=== PATIENT | male | born 1960 | race Caucasian/White ===

== ENCOUNTER → 2016-11-18 | Outpatient (CLI) | payer BC ==
[~2016-11-18] MED LIST: ASPI1CHW12 PO; ASPI325T39 PO; ATOR-26 PO; BRL90 PO; LISI-461 PO; LSN20 PO; METO25TA3 PO; MULT-506 PO; NTRGSL4 SL; OMEP20TA PO; VARE1PAK15 PO
[2016-11-18 10:42] LABS: ALT/SGPT 44 U/L (12-78); BLOOD UREA NITROGEN 20 mg/dl (7-18); BUN/CREATININE RATIO 20.9 (10-20); CALCIUM 9.2 mg/dl (8.5-10.1); CARBON DIOXIDE 23 mmol/L (21-32); CHLORIDE 105 mmol/L (98-107); CREATININE 0.95 mg/dl (0.60-1.40); GLUCOSE 106 mg/dl (70-99); POTASSIUM 4.1 mmol/L (3.5-5.1); SODIUM 139 mmol/L (136-145)
[2016-11-18 10:53] LABS: ALB/GLOB RATIO 1.1 (0.9-2); ALKALINE PHOSPHATASE 69 U/L (45-117); AST/SGOT 24 U/L (15-37)
== END | disposition home or self-care (01) ==
LOC: C.LAB1850 06:59
PROVIDERS: ATTEND Internal Medicine
DX: R73.01 Impaired fasting glucose (principal); E78.5 Hyperlipidemia, unspecified

== ENCOUNTER 2017-02-07 05:44 | Inpatient (IN) | payer BC, OTHER ==
[~2017-02-07] VITALS: Ht 170.2 cm; Wt 93.5 kg
[2017-02-07] VITALS (9 sets, daily range): BP systolic 89–151; BP diastolic 46–97; PULSE 57–82; TEMP 36.9–37.1; O2SAT 94–100; Ht 170.2 cm; Wt 93.5 kg
[~2017-02-07 05:44] MED LIST changes: -ASPI1CHW12 PO; -BRL90 PO; -LSN20 PO; -NTRGSL4 SL; -OMEP20TA PO; -VARE1PAK15 PO
[2017-02-07 06:04] LABS: HEMATOCRIT 43.2 % (42-52); MEAN CELL VOLUME 89.6 fL (80-100); MEAN CORPUSCULAR HEMOGLOBIN 31.3 pg (25-34); MEAN PLATELET VOLUME 9.5 fL (7.4-10.4); PLATELET COUNT 209 K/uL (130-400); RED BLOOD COUNT 4.82 M/uL (4.7-6.1); WHITE BLOOD COUNT 7.05 K/uL (4.8-10.8)
[2017-02-07] MEDS ORDERED: NITROGLYCERIN 0.4 MG SL PER TAB CHARGE SL STA (06:05)
[2017-02-07 06:21] LABS: BLOOD UREA NITROGEN 16 mg/dl (7-18); BUN/CREATININE RATIO 13.4 (10-20); CALCIUM 9.2 mg/dl (8.5-10.1); CARBON DIOXIDE 28 mmol/L (21-32); CHLORIDE 105 mmol/L (98-107); GLUCOSE 125 mg/dl (70-99); POTASSIUM 3.9 mmol/L (3.5-5.1); SODIUM 140 mmol/L (136-145)
[2017-02-07 06:26] LABS: CKMB/CK RATIO 0.9 (0-3.0)
[2017-02-07] MEDS ORDERED: NITROGLYCERIN OINT 2% 1GM PACKET EXT ONE (06:30)
--- NOTE | 2017-02-07 06:41 | EMERGENCY ROOM VISIT NOTE ---
History First contact with patient: 05:51 Chief Complaint: CARDIAC ASSESSMENT Stated Complaint: HEART PAIN Nursing Triage Summary: patient c/o right sided chest discomfort radiating down right arm and jaw since 041 when he woke up. states he has a hx of [place] and bypass. patient states he took aspirin prior to arrival . also states pain has improved since initial episode . History of Present Illness The patient is a 56 year old male who presents to the Emergency Room with complaints of substernal chest pain that radiates down his right arm and up to his jaw since 4:15 this point prescription as pressure, 4 out of 10. Nothing makes it better or worse. Patient woke up this morning and then shortly after that developed symptoms. He follows with Dr. Davies from cardiology. He's had a CABG in the past. He also has high blood pressure, cholesterol and smokes. Patient denies dyspnea, fever, chills, numbness, tingling, nausea, vomiting, diarrhea, diaphoresis, back pain, abdominal pain, leg pain or swelling. Patient saw his fur cleaner last month. No recent stress test or echo. Patient did do some cardiovascular activity yesterday and some light weightlifting. Review of Systems See HPI for pertinent positives & negatives. A total of 10 systems reviewed and were otherwise negative. Past Medical/Surgical History Medical Problems: (1) Hypertension Hyperlipidemia, cholecystectomy, CABG Family History No pertinent family history Social History Smoking Status: Current Every Day Smoker Alcohol Use: none Drug Use: none Housing Status: lives with family Occupation Status: employed Current/Historical Medications Scheduled Aspirin (Aspirin Ec), 325 MG PO DAILY Atorvastatin (Lipitor), 80 MG PO HS Lisinopril (Zestril), 10 MG PO QAM Metoprolol Succ (Toprol Xl) (Toprol-Xl), 25 MG PO BID Multivitamin (Multivitamin), 1 TAB PO QAM Allergies Coded Allergies: No Known Allergies (Verified , 02/07/17) Physical Exam Vital Signs Date Time Temp Pulse Resp B/P Pulse Ox O2 Delivery O2 Flow Rate FiO2 02/07/17 06:17 59 20 130/65 96 Room Air 02/07/17 05:58 97 Room Air 02/07/17 05:53 57 02/07/17 05:50 36.5 56 20 176/103 100 Room Air Physical Exam VITALS: Vitals are noted on the nurse's note and reviewed by myself. Vital signs hypertensive. GENERAL: Pleasant male, in no acute distress, nondiaphoretic, well-developed well-nourished. SKIN: The skin was without rashes, erythema, edema, or bruising. There is no tenting of the skin. Capillary reflex less than 2 seconds. HEAD: Normocephalic atraumatic. EARS: External auditory canals clear, tympanic membranes pearly roy without erythema or effusion bilaterally. EYES: Pupils equal round and reactive to light and accommodation. Conjunctivae without injection, sclerae without icterus. Extraocular movements intact. NOSE: Patent, turbinates without inflammation or discharge. MOUTH: Mucous membranes moist. Pharynx without erythema or exudate. Uvula midline. Airway patent. Tongue does not deviate. NECK: Supple without nuchal rigidity. No lymphadenopathy. No thyromegaly. Cervical spine is nontender. No JVD. HEART: Regular rate and rhythm chest nontender to palpation LUNGS: Clear to auscultation bilaterally without wheezes, rales or rhonchi. No dullness to percussion. No retractions or accessory muscle use. ABDOMEN: Positive bowel sounds x 4. Normal tympanic percussion. Soft, nontender, without masses or organomegaly. Castillo sign negative. No guarding or rebound tenderness. MUSCULOSKELETAL: No muscle atrophy, erythema, or edema noted. NEURO: Patient was alert and oriented to person place and time. Normal sensation to light and sharp touch. No focal neurological deficits. Medical Decision & Procedures Laboratory Results 02/07/17 05:52 Red Blood Count 4.82, Mean Corpuscular Volume 89.6, Mean Corpuscular Hemoglobin 31.3, Mean Corpuscular Hemoglobin Concent 35.0, Mean Platelet Volume 9.5 02/07/17 05:52 Test 02/07/17 05:52 02/07/17 05:57 White Blood Count 7.05 K/uL (4.8-10.8) Red Blood Count 4.82 M/uL (4.7-6.1) Hemoglobin 15.1 g/dL (14.0-18.0) Hematocrit 43.2 % (42-52) Mean Corpuscular Volume 89.6 fL (80-100) Mean Corpuscular Hemoglobin 31.3 pg (25-34) Mean Corpuscular Hemoglobin Concent 35.0 g/dl (32-36) Platelet Count 209 K/uL (130-400) Mean Platelet Volume 9.5 fL (7.4-10.4) RDW Standard Deviation 44.4 fL (36.4-46.3) RDW Coefficient of Variation 13.6 % (11.5-14.5) Anion Gap 7.0 mmol/L (3-11) Est Creatinine Clear Calc Drug Dose 77.4 ml/min Estimated GFR () 79.0 Estimated GFR (Non- 68.1 BUN/Creatinine Ratio 13.4 (10-20) Calcium Level 9.2 mg/dl (8.5-10.1) Total Creatine Kinase 490 U/L (39-308) Creatine Kinase MB 4.3 ng/ml (0.5-3.6) Creatine Kinase MB Ratio 0.9 (0-3.0) Troponin I < 0.015 ng/ml (0-0.045) Bedside Troponin I 0.000 ng/ml (0-0.045) Medications Administered Medications (Trade) Dose Ordered Sig/Dinesh Route Start Time Stop Time Status Last Admin Dose Admin Nitroglycerin (Nitrostat Tab) 0.4 mg NOW STAT SL 02/07/17 06:05 02/07/17 06:06 DC 02/07/17 06:14 0.4 MG Nitroglycerin (Nitroglycerin 2% Oint) 0.5 inch NOW ONCE EXT 02/07/17 06:30 02/07/17 06:31 DC 02/07/17 06:32 0.5 INCH ED Course Prior records/ancillary studies reviewed. Triage Nursing notes reviewed. Additional history obtained from family. The patient's history was concerning for chest pain. Differential diagnosis: Etiologies such as cardiac ischemia, aortic dissection, pulmonary embolism, pneumonia, pneumothorax, musculoskeletal, infections, pericarditis, myocarditis , esophageal rupture, gastrointestinal, as well as others were entertained. Physical examination: As above. ER treatment provided: Nitroglycerin. Patient already took aspirin at home On reassessment the patient felt better. Diagnostic interpretation by me: The electrocardiogram was negative for pathologic change. Normal sinus, normal intervals, no acute ST-T wave changes, rate of 61. Impression normal sinus rhythm interpreted by myself. Repeat EKG was unchanged. The labs revealed negative troponin Stable H&H Imaging studies: Chest x-ray with no acute consolidation, pneumothorax or free air per my interpretation Consultation: A consultation was placed with the hospitalist, Dr. Talley. The case was discussed and diagnostics were reviewed. The patient was evaluated in the ER for further treatment. Exam and history seem consistent with chest pain with concerns for ACS. Patient felt better after the nitroglycerin and paste was applied. Patient will be evaluated by medicine for further evaluation and workup. He has multiple risk factors for heart disease such as high blood pressure, cholesterol , prior heart disease and he continues to smoke. By the evaluation outlined above emergent etiologies such as aortic dissection, pulmonary embolism, pneumonia, pneumothorax, infections, pericarditis, myocarditis, gastrointestinal , as well as others were deemed relatively unlikely. The pt informed about the findings as listed above. All questions were answered and pleased with the treatment. Case reviewed with my attending Medical Decision As above Impression Primary Impression: Precordial chest pain Departure Information Dispostion Being Evaluated By Hospitalist Condition FAIR Referrals No Doctor, Assigned (PCP) Patient Instructions My [facility]
[2017-02-07 06:53] LABS: BASO % 0.3 %; BASO ABS # 0.02 K/uL (0-0.2); COMPLETE YES; IG% 0.1 %; LYMPH % 27.4 %; LYMPH ABS # 1.93 K/uL (1.2-3.4); MONO % 8.1 %; NEUT % 62.1 %
[2017-02-07] MEDS ORDERED: NITROGLYCERIN 0.4 MG SL PER TAB CHARGE SL PRN (07:00)
[2017-02-07] MEDS ORDERED: ZOLPIDEM TARTRATE 5 MG TAB PO PRN (07:00)
[2017-02-07] MEDS ORDERED: ACETAMINOPHEN 325 MG TAB PO PRN (07:00)
[2017-02-07] MEDS ORDERED: ONDANSETRON INJ 2 MG/ML 2 ML VIAL IV PRN (07:00)
--- NOTE | 2017-02-07 07:08 | History and Physical ---
History & Physical Date & Time of Service: Feb 07, 2017 at 07:01 Chief Complaint: Heart Pain Primary Care Physician: No Doctor, Assigned History of Present Illness Source: patient, spouse The patient is a 56-year-old male with past history of CABG in 2010 at [facility], who woke up this morning as usual, began to drink his coffee, and since then has had intermittent episodes of chest pressure and pain across his precordial area and over into his right arm. He reports the discomfort similar to what happened to him in 2011 was let us CABG. He has been more physically active over the past few day, but nothing that he thinks is excessive. Past Medical/Surgical History Medical Problems: (1) Hypertension Status: Chronic Family History No pertinent family history Social History Smoking Status: Current Every Day Smoker Smokeless Tobacco Use: No Alcohol Use: none Drug Use: none Marital Status: Housing status: lives with family Occupational Status: employed Immunizations History of Influenza Vaccine: Unknown History of Tetanus Vaccine?: Unknown History of Pneumococcal: Unknown History of Hepatitis B Vaccine: Unknown Multi-Drug Resistant Organisms History of MDRO: No Allergies Coded Allergies: No Known Allergies (Verified , 02/07/17) Home Medications Scheduled Aspirin (Aspirin Ec), 325 MG PO DAILY Atorvastatin (Lipitor), 80 MG PO HS Lisinopril (Zestril), 10 MG PO QAM Metoprolol Succ (Toprol Xl) (Toprol-Xl), 25 MG PO BID Multivitamin (Multivitamin), 1 TAB PO QAM Review of Systems The patient denies chest palpitations, shortness of breath, cough, lower extremity swelling, vision change, hearing change, sore throat, fevers, chills, sweats, weight change, fatigue, nausea, vomiting, abdominal pain, pelvic pain, blood in urine or stool, dysuria, urinary frequency or urgency, lightheadedness , dizziness, headache, memory loss, rash, abnormal bruising or bleeding, imbalance, focal or generalized weakness, numbness or tingling in legs, arthralgias or myalgias, back or neck pain, night sweats, or allergy symptoms. The review of systems is otherwise negative other than for that already noted above, and at least 10 systems have been reviewed. Physical Exam Vital Signs Date Time Temp Pulse Resp B/P Pulse Ox O2 Delivery O2 Flow Rate FiO2 02/07/17 06:57 50 16 145/84 98 Room Air 02/07/17 06:17 59 20 130/65 96 Room Air 02/07/17 05:58 97 Room Air 02/07/17 05:53 57 02/07/17 05:50 36.5 56 20 176/103 100 Room Air The patient is awake, well-developed and adequately nourished, alert and oriented 3, normocephalic and atraumatic, lying in bed and in no acute distress. HEENT--PERRL, EOMI, mucous membranes and oropharynx normal. Neck--supple, no JVD or bruits, thyroid normal, trachea midline, no adenopathy. Heart--normal S1 and S2, no extra beats, no murmurs, rubs or gallops. Lungs--clear bilaterally with good air movement, no respiratory distress, no accessory muscle use. Abdomen--normal bowel sounds and soft, nontender and nondistended, no hernias or masses, no organomegaly. Extremities--no cyanosis, clubbing or edema. There are good distal pulses b/l. Dermatologic--normal skin turgor, normal color, warm and dry, no abnormal lymph nodes, no rash. Neurologic--cranial nerves II through XII grossly intact, motor and sensory examination normal. Rheumatologic--normal range of motion, nontender, muscles and joints. Psychiatric--normal affect. Diagnostics Laboratory Results Results Past 24 Hours Test 02/07/17 05:52 02/07/17 05:57 02/07/17 06:55 02/07/17 06:59 Range/Units White Blood Count 7.05 4.8-10.8 K/uL Red Blood Count 4.82 4.7-6.1 M/uL Hemoglobin 15.1 14.0-18.0 g/dL Hematocrit 43.2 42-52 % Mean Corpuscular Volume 89.6 80-100 fL Mean Corpuscular Hemoglobin 31.3 25-34 pg Mean Corpuscular Hemoglobin Concent 35.0 32-36 g/dl Platelet Count 209 130-400 K/uL Mean Platelet Volume 9.5 7.4-10.4 fL Neutrophils (%) (Auto) 62.1 % Lymphocytes (%) (Auto) 27.4 % Monocytes (%) (Auto) 8.1 % Eosinophils (%) (Auto) 2.0 % Basophils (%) (Auto) 0.3 % Neutrophils # (Auto) 4.38 1.4-6.5 K/uL Lymphocytes # (Auto) 1.93 1.2-3.4 K/uL Monocytes # (Auto) 0.57 0.11-0.59 K/uL Eosinophils # (Auto) 0.14 0-0.5 K/uL Basophils # (Auto) 0.02 0-0.2 K/uL RDW Standard Deviation 44.4 36.4-46.3 fL RDW Coefficient of Variation 13.6 11.5-14.5 % Immature Granulocyte % (Auto) 0.1 % Immature Granulocyte # (Auto) 0.01 0.00-0.02 K/uL Sodium Level 140 136-145 mmol/L Potassium Level 3.9 3.5-5.1 mmol/L Chloride Level 105 98-107 mmol/L Carbon Dioxide Level 28 21-32 mmol/L Anion Gap 7.0 3-11 mmol/L Blood Urea Nitrogen 16 7-18 mg/dl Creatinine 1.20 0.60-1.40 mg/dl Est Creatinine Clear Calc Drug Dose 77.4 ml/min Estimated GFR () 79.0 Estimated GFR (Non- 68.1 BUN/Creatinine Ratio 13.4 10-20 Random Glucose 125 70-99 mg/dl Calcium Level 9.2 8.5-10.1 mg/dl Total Creatine Kinase 490 39-308 U/L Creatine Kinase MB 4.3 0.5-3.6 ng/ml Creatine Kinase MB Ratio 0.9 0-3.0 Troponin I < 0.015 0-0.045 ng/ml Bedside Troponin I 0.000 0-0.045 ng/ml EKG EKG shows sinus bradycardia at 57 bpm, there are no acute ST-T changes. Impression Assessment and Plan CAD/status post CABG/hypertension--the patient will be admitted to the telemetry unit for serial cardiac enzymes, cardiac rhythm monitoring and a 2-D echocardiogram with Dopplers. We'll consult his chief technical officer Dr. Holguin. Continue his metoprolol tartrate 25 mg by mouth twice a day, aspirin 325 mg by mouth daily, and increase his lisinopril from 10 to 20 mg by mouth every morning. Hypercholesterolemia--continue Lipitor 80 mg by mouth daily.. Hyperglycemia--blood sugar this morning is 125. We'll check a hemoglobin A1c. Level of Care Telemetry Advanced Directives Existing Advance Directive: No Existing Living Will: No Existing Power of Underground Bolting Machine Operator: No Resuscitation Status FULL RESUSCITATION VTE Prophylaxis VTE Risk Assessment Done? Y/N: Yes Risk Level: Moderate Given or contraindicated: SCD's Social Service Consult None Apply
[2017-02-07] MEDS ORDERED: IV FLUIDS COMPLETED PRN (07:30)
[2017-02-07 07:41] LABS: CKMB/CK RATIO 0.9 (0-3.0)
--- NOTE | 2017-02-07 07:58 | DIAGNOSTIC IMAGING REPORT ---
SINGLE VIEW CHEST CLINICAL HISTORY: Atypical chest pain. FINDINGS: An AP, portable, upright chest radiograph is compared to study dated 03/02/2012. The examination is degraded by portable technique and patient rotation. The patient is status post midline sternotomy. The heart is enlarged and there is mild atherosclerotic calcification of the thoracic aorta. The pulmonary vasculature is noncongested. The lungs and pleural spaces are clear. No pneumothorax is seen. The bony thorax is grossly intact. IMPRESSION: Cardiomegaly with no acute cardiopulmonary abnormality. Electronically signed by: Mike Borden M.D. 02/07/2017 7:55 AM Dictated Date/Time: 02/07/2017 7:55 AM
[2017-02-07 07:59] LABS: ESTIMATED AVERAGE GLUCOSE 126 mg/dl; HA1C FLAG Normal (Normal)
[2017-02-07] MEDS: LISINOPRIL 20 MG TAB PO SCH (12:00)
[2017-02-07] MEDS: MULTIVITAMIN TAB PO SCH (12:00)
[2017-02-07] MEDS: METOPROLOL SUCC 25MG EXT REL TAB PO SCH ×2 (12:00→20:36)
[2017-02-07] MEDS: ASPIRIN 325 MG ECTAB PO SCH (12:00)
--- NOTE | 2017-02-07 14:32 | Hospitalist Progress Note ---
Hospitalist Progress Note Date of Service Feb 07, 2017. (Jeri Morales PA-C) Subjective Pt evaluation today including: conversation w/ patient, conversation w/ family , physical exam, chart review, lab review, review of studies, conversation w/ data virtualization consultant, review of inpatient medication list no further CP (Jeri Morales PA-C) Objective Vital Signs Date Time Temp Pulse Resp B/P Pulse Ox O2 Delivery O2 Flow Rate FiO2 02/07/17 12:43 138/83 02/07/17 12:00 100 Room Air 02/07/17 10:52 37.0 60 18 148/97 100 Room Air 02/07/17 10:40 52 16 149/89 97 02/07/17 09:09 56 20 133/74 98 Room Air 02/07/17 07:25 98 Room Air 02/07/17 06:57 50 16 145/84 98 Room Air 02/07/17 06:17 59 20 130/65 96 Room Air 02/07/17 05:58 97 Room Air 02/07/17 05:53 57 02/07/17 05:50 36.5 56 20 176/103 100 Room Air (Jeri Morales PA-C) Laboratory Results Last 24 Hours Test 02/07/17 05:52 02/07/17 05:57 02/07/17 07:06 02/07/17 14:19 White Blood Count 7.05 K/uL Red Blood Count 4.82 M/uL Hemoglobin 15.1 g/dL Hematocrit 43.2 % Mean Corpuscular Volume 89.6 fL Mean Corpuscular Hemoglobin 31.3 pg Mean Corpuscular Hemoglobin Concent 35.0 g/dl Platelet Count 209 K/uL Mean Platelet Volume 9.5 fL Neutrophils (%) (Auto) 62.1 % Lymphocytes (%) (Auto) 27.4 % Monocytes (%) (Auto) 8.1 % Eosinophils (%) (Auto) 2.0 % Basophils (%) (Auto) 0.3 % Neutrophils # (Auto) 4.38 K/uL Lymphocytes # (Auto) 1.93 K/uL Monocytes # (Auto) 0.57 K/uL Eosinophils # (Auto) 0.14 K/uL Basophils # (Auto) 0.02 K/uL RDW Standard Deviation 44.4 fL RDW Coefficient of Variation 13.6 % Immature Granulocyte % (Auto) 0.1 % Immature Granulocyte # (Auto) 0.01 K/uL Sodium Level 140 mmol/L Potassium Level 3.9 mmol/L Chloride Level 105 mmol/L Carbon Dioxide Level 28 mmol/L Anion Gap 7.0 mmol/L Blood Urea Nitrogen 16 mg/dl Creatinine 1.20 mg/dl Est Creatinine Clear Calc Drug Dose 77.4 ml/min Estimated GFR () 79.0 Estimated GFR (Non- 68.1 BUN/Creatinine Ratio 13.4 Random Glucose 125 mg/dl Estimated Average Glucose 126 mg/dl Hemoglobin A1c 6.0 % Calcium Level 9.2 mg/dl Total Creatine Kinase 490 U/L 427 U/L Creatine Kinase MB 4.3 ng/ml 4.0 ng/ml Creatine Kinase MB Ratio 0.9 0.9 Troponin I < 0.015 ng/ml < 0.015 ng/ml Bedside Troponin I 0.000 ng/ml (Jeri Morales PA-C) Assessment and Plan 56 y/o hx CAD s/p CABG presents with CP -f/u echo, enzymes, cardiology consult -continue current meds (Jeri Morales PA-C) Attending Attestation: Pt seen/examined, chart reviewed, care plan d/w LATOYA Fierro. I agree w/ the kaufman components of her documentation. At the time of my visit this afternoon the patient's troponin returned at 2.8. He was c/o 2-3/10 chest discomfort with radiation to his arms/shoulders and also the mid thoracic region of his back. No nausea/emesis/diaphoresis. The pain would get better with morphine, then return a little while later. Seen by Dr. Peacock - started on heparin drip, nitro drip, etc. Plan for heart cath in am. VSS, afebrile gen - NAD neck - no JVD heart - RRR, s1, s2, no murmur chest - no reproducible chest wall pain lungs - CTA b/l, scant end-exp wheeze upper lung segments abd - soft, NT, ND, no HSM ext - no edema, pulses 2+ b/l Labs - latest CPK, CK-MB, trop all + EKG - sinus anthony, no ST changes A/P: Known CAD s/p CABG in the past - now with NSTEMI and ongoing, mild chest pain. Agree w/ nitro and heparin drips. Cont BB, asa, statin. Brilenta per cardiology. Morphine prn pain. If pain persists, worsens, or there is a marked rise in troponin tonight he may need early catheterization and/or transfer to ICU for titration of nitroglycerin drip. plan of care d/w Jovanny Oliveros, and night resident (Dr. Pinedo). Due to NSTEMI change to full admission status. Drew Carver MD (Drew Carver MD)
[2017-02-07] MEDS ORDERED: LSN20 PO (14:34)
--- NOTE | 2017-02-07 14:37 | Discharge Instructions ---
Discharge Instructions Date of Service Feb 07, 2017. Admission Reason for Admission: Chest Pain Radiating To Arm, Precordial Chest Pain Discharge Discharge Diagnosis / Problem: chest pain Discharge Goals Goal(s): Diagnostic testing Activity Recommendations Activity Limitations: resume your previous activity . Instructions / Follow-Up Instructions / Follow-Up You had been treated in the hospital for chest pain. The following changes/additions have been made to your medication list: -Lisinopril has been increased to 20 mg daily. This prescription was sent to your pharmacy. Please follow up with your dinkey engine mechanic in 2 weeks Please follow up with your primary care physician within one week for a blood pressure recheck It is advised that you stop smoking Call your doctor or return to the emergency department if you have any of the following symptoms: -Fever of 101F or greater -Persistent vomiting - Persistent diarrhea -Lethargy -Returning Chest pain -Shortness of breath -severe dizziness -weakness on one side of your body Current Hospital Diet Patient's current hospital diet: AHA Diet (Heart Healthy) Discharge Diet Recommended Diet: AHA Diet (Heart Healthy) Procedures Procedures Performed: echo Pending Studies Studies pending at discharge: no Laboratory Results Hemoglobin A1c Test 02/07/17 05:52 Range/Units Estimated Average Glucose 126 mg/dl Hemoglobin A1c 6.0 H 4.5-5.6 % Medical Emergencies . Who to Call and When: Medical Emergencies: If at any time you feel your situation is an emergency, please call 911 immediately. . Non-Emergent Contact Non-Emergency issues call your: Primary Care Provider . . "Provider Documentation" section prepared by Jeri Morales. VTE Core Measure Inpt VTE Proph given/why not?: SCD's
[2017-02-07 15:11] LABS: CKMB/CK RATIO 7.2 (0-3.0)
[2017-02-07] MEDS ORDERED: NITROGLYCERIN/D5W 100 MCG/ML 250 ML IV SCH (15:21)
[2017-02-07] MEDS ORDERED: MoRPHine SULFATE 2 MG/ML CARP IV STA (15:21)
[2017-02-07] MEDS ORDERED: NURSING VERBAL MED ORDER ONE (15:30)
[2017-02-07] MEDS ORDERED: TICAGRELOR 90 MG TAB PO STA (15:55)
[2017-02-07] MEDS ORDERED: HEPARIN 25,000 UNIT/500ML D5W 500 ML IV PRN (16:00)
[2017-02-07] MEDS ORDERED: HEPARIN IV BOLUS 6,000 UNIT in SYRINGE 0 ML IV ONE (16:00)
[2017-02-07 16:52] LABS: PARTIAL THROMBOPLASTIN RATIO 1.1; PROTHROMBIN TIME (PATIENT) 10.7 SECONDS (9.0-12.0)
[2017-02-07 16:53] LABS: BASO % 0.2 %; BASO ABS # 0.02 K/uL (0-0.2); COMPLETE YES; EOS % 0.9 %; HEMATOCRIT 42.7 % (42-52); IG% 0.4 %; LYMPH % 21.6 %; LYMPH ABS # 2.31 K/uL (1.2-3.4); MEAN CELL VOLUME 89.7 fL (80-100); MEAN CORPUSCULAR HEMOGLOBIN 31.3 pg (25-34); MEAN CORPUSCULAR HGB CONC 34.9 g/dl (32-36); MEAN PLATELET VOLUME 9.7 fL (7.4-10.4); NEUT % 70.9 %; PLATELET COUNT 211 K/uL (130-400); RED BLOOD COUNT 4.76 M/uL (4.7-6.1); WHITE BLOOD COUNT 10.67 K/uL (4.8-10.8)
[2017-02-07] MEDS: NICOTINE 14 MG/24 HR TDSY TD SCH (16:59)
[2017-02-07] MEDS: MoRPHine SULFATE 2 MG/ML CARP IV PRN ×2 (18:20→19:33)
[2017-02-07] MEDS: ATORVASTATIN 40 MG TAB PO SCH (20:37)
[2017-02-07] MEDS: TICAGRELOR 90 MG TAB PO SCH (20:37)
--- NOTE | 2017-02-07 22:08 | CARDIOLOGY CONSULTATION ---
DATE OF CONSULTATION: 02/07/2017 REFERRING PHYSICIAN: Stevan Napier MD PRIMARY CARE PHYSICIAN: MD Jesus CHIEF COMPLAINT: Chest pain. HISTORY OF PRESENT ILLNESS: Mr. Warren Montgomery is a 56-year-old gentleman, with a known history of coronary artery disease having previously undergone coronary artery bypass grafting in 2010. The patient was in his usual state of health this morning when at breakfast, he began to experience symptoms of substernal chest discomfort, back discomfort, jaw pain and right arm discomfort. These symptoms were reminiscent of anginal pain he had prior to his bypass surgery. The patient's symptoms did not resolve at home and he presented to the [facility] where he received some sublingual nitroglycerin. This apparently did not relieve his symptoms entirely. Based on his symptoms and history, he was admitted for hospitalization. He states that throughout the course of the day, he has had persistent discomfort in the precordium and back. The arm symptoms appear to have resolved. Yesterday, he was performing strenuous activity including weight lifting and feels that his symptoms may be musculoskeletal in nature. He denies associated dyspnea or diaphoresis. He has not had any associated nausea. Generally speaking, he is a very active individual who engages in routine physical activity both at work and at leisure; this includes strenuous activity such as weight lifting. He has not had any symptoms of chest pain or angina associated with these activities recently. PAST MEDICAL HISTORY: Significant for coronary artery disease having undergone bypass grafting in 2010. There was a SHETH to the LAD, a saphenous vein graft to OM1 and OM2 and a saphenous vein graft to the PDA. He was known to have; 1. Preserved left ventricular systolic function. 2. Hypertension. 3. Hyperlipidemia. 4. Obstructive sleep apnea. 5. Erectile dysfunction. 6. Diverticulosis. 7. Impaired fasting glucose. 8. History of colon polyps. PAST SURGICAL HISTORY: Significant for the aforementioned coronary artery bypass grafting. 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 He has a history of tobacco abuse and claims to drink socially. FAMILY HISTORY: No history of premature coronary disease. OUTPATIENT MEDICATIONS: Include; aspirin, atorvastatin, lisinopril, metoprolol and multivitamin. MEDICAL ALLERGIES: No known medical allergies. REVIEW OF SYSTEMS: A complete 10-system review of systems was performed and the pertinent positives are as noted in the history of present illness. The remainder of the review of systems was negative. PHYSICAL EXAMINATION: GENERAL: The patient does not appear to be in acute distress. He was somewhat anxious however. He was alert, oriented and answered all questions appropriately. VITAL SIGNS: Include blood pressure of 145/83 with a pulse of 57. HEENT: His sclerae are anicteric. Pupils are equal and reactive to light and accommodation. Extraocular movements were intact. NECK: Palpation of submandibular region did not reveal any significant lymphadenopathy. The carotids are palpable bilaterally. I do not appreciate any bruits on auscultation. There is no evidence of jugular venous distention. The thyroid is not enlarged. LUNGS: Auscultation of both lung hercules reveal them to be clear. There were no rales, wheezes or rhonchi. He had good respiratory effort without use of accessory muscles. HEART: Evaluation revealed him to be in a regular rhythm. I did not appreciate any murmurs. S1, S2 appear to be normal. The PMI was not markedly displaced. CHEST: He had a well-healed sternotomy scar. Palpation of the chest area did not reproduce his symptoms. EXTREMITIES: Palpation of both wrists revealed radial pulses that were equal in intensity. There was no evidence of cyanosis or clubbing. Evaluation of lower extremities did not reveal any significant peripheral edema. I do not appreciate any rashes on exam today. LABORATORY STUDIES: Obtained since admission include; a white cell count of 10.6, hemoglobin of 14 and platelet count of 211. Sodium was 140, potassium was 3.9, BUN was 16 and creatinine was 1.2. Serial cardiac biomarkers include two initial troponins which were normal and most recent was 2.8; this was in the setting of an elevated total creatinine kinase at 709. A 12-lead EKG was obtained at admission and recently; both of which demonstrated normal sinus rhythm without evidence of ST segment changes. A single view chest x-ray was also obtained at the time of admission which was read as cardiomegaly with no acute cardiopulmonary abnormality. ASSESSMENT AND PLAN: Non-ST elevation myocardial infarction. The patient's symptoms began at rest and it likely represents an unstable coronary syndrome. He had similar index symptoms associated with his angina prior to his bypass surgery. The patient is somewhat frustrated by the recurrence of these symptoms. At several points during the interview he wanted to go home and he was counseled against that. At this point, we will intensify therapy in an attempt to make him pain-free and mitigate any additional ischemia with plans on a repeat angiography tomorrow. FINAL RECOMMENDATIONS: 1. Systemic heparinization. 2. Continue aspirin. 3. Load with brilinta and schedule b.i.d. 4. Nitroglycerin infusion for symptoms as well as blood pressure control. 5. Morphine on an as needed basis. 6. Continue serial enzyme monitoring and periodic EKGs.
[2017-02-07 23:34] LABS: PARTIAL THROMBOPLASTIN RATIO 2.8
[2017-02-07 23:50] LABS: CKMB/CK RATIO 9.4 (0-3.0)
[2017-02-08] VITALS (12 sets, daily range): BP systolic 90–126; BP diastolic 44–74; PULSE 54–80; TEMP 36.6–37.2; O2SAT 95–97
[2017-02-08] MEDS: SODIUM CHLORIDE 0.9% 500ML 500 ML IV SCH ×2 (00:31→06:00)
[2017-02-08] MEDS ORDERED: NSS + 20MEQ KCL 1000ML 1,000 ML IV SCH (00:45)
--- NOTE | 2017-02-08 01:46 | Progress Note ---
Progress Note Date of Service Feb 08, 2017. Progress Note 56-year-old male with past medical history of CABG presented with chest pressure this morning. He was admitted in telemetry essentially for a chest pain rule out. Cardiology was consulted and he was started on heparin and nitroglycerin drip with aspirin, Lipitor, lisinopril, Brilinta. Last set of troponins came back at 54.8, went up to see the patient. Subjective: He was resting and was totally asymptomatic. Denied any chest pain, shortness of breath, palpitations, dizziness, Diaphoresis, nausea and vomiting, epigastric pain. Objective: Temperature at 37.1, heart rate of 82, blood pressure 89/46, saturating 94 on room air Troponin at 11 PM was 54.8 from 2.8 Physical exam: Awake, alert, oriented CVS: RRR, S1 and S2 heard Lungs clear to auscultation bilaterally, no respiratory distress, no accessory muscles used Abdomen: Soft, nontender Assessment and plan: 56-year-old male with past medical history of CABG presented with chest pressure this morning. Currently on heparin and nitroglycerin drip. Also received Brilinta, Aspirin, Lipitor , lisinopril. Troponins were trended every 8 hours, troponin bumped up to 54.8 from 2.8 this afternoon. EKG was obtained which showed no significant change from earlier EKGs. Dr. Petty from cardiology was consulted and made aware about the troponin change. Considering the patient was asymptomatic with no EKG changes, he will be monitored. - IV fluids( NSS + K added ) considering low blood pressure. - RN instructed to page with any change in vital signs or if patient symptomatic - Troponin added to a.m. 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
[2017-02-08 06:06] LABS: BASO % 0.2 %; BASO ABS # 0.02 K/uL (0-0.2); COMPLETE YES; EOS % 0.8 %; HEMATOCRIT 39.1 % (42-52); IG% 0.2 %; LYMPH % 12.2 %; LYMPH ABS # 1.17 K/uL (1.2-3.4); MEAN CELL VOLUME 89.1 fL (80-100); MEAN CORPUSCULAR HEMOGLOBIN 30.5 pg (25-34); MEAN CORPUSCULAR HGB CONC 34.3 g/dl (32-36); MONO % 7.5 %; NEUT % 79.1 %; PLATELET COUNT 186 K/uL (130-400); RED BLOOD COUNT 4.39 M/uL (4.7-6.1); WHITE BLOOD COUNT 9.59 K/uL (4.8-10.8)
[2017-02-08 06:20] LABS: BUN/CREATININE RATIO 14.2 (10-20); CREATININE 0.9 mg/dl (0.60-1.40); POTASSIUM 4.2 mmol/L (3.5-5.1)
[2017-02-08 06:23] LABS: CHOLESTEROL/HDL RATIO 2.7; PARTIAL THROMBOPLASTIN RATIO 2.2
[2017-02-08] MEDS ORDERED: FENTANYL CITRATE INJ 50 MCG/1 ML 2 ML VIAL ONE (07:37)
[2017-02-08] MEDS ORDERED: MIDAZOLAM HCL 1 MG/ML 2ML VIAL ONE (07:38)
--- NOTE | 2017-02-08 08:36 | Procedure Note ---
Pre-Mod Sedation Assessment General Date of Moderate Sedation: Feb 08, 2017. Vital Signs: Vital Signs Past 12 Hours Date Time Temp Pulse Resp B/P Pulse Ox O2 Delivery O2 Flow Rate FiO2 02/08/17 08:26 70 16 128/76 97 Room Air 02/08/17 04:00 Room Air 02/08/17 03:35 37.0 80 19 90/44 95 Room Air 02/08/17 00:00 Room Air 02/07/17 23:12 37.1 82 18 89/46 94 Room Air Review Cardiovascular: regular rate, rhythm Abdomen: normal bowel sounds Airway Class: III Pre-Sedation Airway Assessment Oral Cavity: WNL Able to Visualize Vocal Cords: No Short Thick Neck: No Hx of Sleep Apnea: Yes Smoking Status: Current Every Day Smoker Mallampati Classification: Class III ASA Classification: Class III Procedure Planning Contraindications-for Mod Sed: None Yes Notes The planned sedation has been discussed with the patient and consent obtained. I have identified the patient, determined the appropriateness of sedation and have assessed the patient immediately prior to the procedure. All medicine(s) and interventions are by my order.
--- NOTE | 2017-02-08 08:41 | Cardiology Procedure Brief Nt ---
Preliminary Cardiology Note Procedure Date Feb 08, 2017. Pre-Procedure Diagnosis RI Post-Procedure Diagnosis RI Procedure(s) Performed coronary/graft angiography Spare Hand [employer] Architect Consultant(s) None Estimated Blood Loss 10cc Medication(s) Versed,fentanyl Preliminary Findings Occluded distal segment of SVG-OM2 Recommendations Medical management Specimens None Complication(s) None Disposition PCU
[2017-02-08] MEDS ORDERED: ONDANSETRON INJ 2 MG/ML 2 ML VIAL IV PRN (08:45)
[2017-02-08] MEDS: NICOTINE 14 MG/24 HR TDSY TD SCH (09:00)
[2017-02-08] MEDS: METOPROLOL SUCC 25MG EXT REL TAB PO SCH ×2 (09:29→20:21)
[2017-02-08] MEDS: ASPIRIN 325 MG ECTAB PO SCH (09:29)
[2017-02-08] MEDS: LISINOPRIL 20 MG TAB PO SCH (09:29)
[2017-02-08] MEDS: MULTIVITAMIN TAB PO SCH (09:30)
--- NOTE | 2017-02-08 09:57 | Procedure Note ---
Post-Mod Sedation Assessment General Date of Moderate Sedation Feb 08, 2017. Vital Signs: Vital Signs Past 12 Hours Date Time Temp Pulse Resp B/P Pulse Ox O2 Delivery O2 Flow Rate FiO2 02/08/17 09:47 37.1 57 20 116/63 97 Room Air 02/08/17 09:40 37.1 57 20 116/63 97 Room Air 02/08/17 09:23 37.0 60 14 119/65 95 Room Air 02/08/17 08:41 64 16 120/80 97 Room Air 02/08/17 08:26 70 16 128/76 97 Room Air 02/08/17 04:00 Room Air 02/08/17 03:35 37.0 80 19 90/44 95 Room Air 02/08/17 00:00 Room Air 02/07/17 23:12 37.1 82 18 89/46 94 Room Air Review - Discharge Criteria Vital Signs Stable: Yes Alert/Oriented/Conversant: Yes Returned to Baseline Mental St: Yes Nausea Absent/Minimal: Yes Pain/Discomfort/Absent/Minimal: Yes Normal/Baseline Respirations: Yes Active Bleeding?: No Prescriptions Given: None Specific Proced. D/C Criteria Distal Pulses Present (Cardiac: Yes Groin site assessed-Card Cath: Yes Voided Prior To Discharge: N/A Discharged Patients Adult Escort/Transportation: N/A
[2017-02-08] MEDS: TICAGRELOR 90 MG TAB PO SCH ×2 (10:35→20:22)
--- NOTE | 2017-02-08 11:01 | ECHOCARDIOGRAM REPORT ---
*NOTICE TO RECEIVING [employer] This information is strictly Confidential and protected under [place] law. [place] law prohibits you from making any further disclosure of this information unless further disclosure is expressly permitted by the written consent of the person to whom it pertains or is authorized by law. A general authorization for the release of medical or other information is not sufficient for this purpose. Hospital accepts no responsibility if the information is made available to any other person, INCLUDING THE PATIENT. Interpretation Summary * Name: TAPAN MORTENSEN Study Date: 02/08/2017 07:09 AM BP: 138/83 mmHg * Patient Location: .2E\S\E204\S\1 HR: 60 * : 1960 (M/d/yyyy) Gender: Male Height: 67 in * Age: 56 yrs Ethnicity: [place] Weight: 210 lb * Ordering Physician: Stevan Napier * Referring Physician: Self, Referred * Performed By: Lazara White RCS * * Reason For Study: CHEST PAIN * BSA: 2.1 m2 * -- Conclusions -- * There is mild concentric left ventricular hypertrophy. * Left ventricular systolic function is normal. * No regional wall motion abnormalities noted. * Compared to a study from 2011 the wall motion is now normal. There has been development of mild LVH Procedure Details * The study was diagnostic quality. Left Ventricle * The left ventricle is normal in size. * There is mild concentric left ventricular hypertrophy. * Ejection Fraction = 60-65%. * Left ventricular systolic function is normal. * No regional wall motion abnormalities noted. Right Ventricle * The right ventricle is normal in size and function. Atria * The left atrial size is normal. * Right atrial size is normal. Mitral Valve * The mitral valve anatomy is normal. * Significant mitral regurgitation is absent. Tricuspid Valve * The tricuspid valve is not well visualized, but is grossly normal. * Significant tricuspid regurgitation is absent. Aortic Valve * The aortic valve is normal in structure and function. * No hemodynamically significant valvular aortic stenosis. * There is no significant aortic regurgitation. Great Vessels * The aortic root is normal size. Pericardium/Pleural * There is no pericardial effusion. MMode 2D Measurements and Calculations IVSd 1.3 cm IVSs 1.6 cm LVIDd 4.8 cm LVIDs 3.2 cm LVPWd 1.5 cm LVPWs 2.1 cm IVS/LVPW 0.85 FS 32.6 % EDV(Teich) 106.6 ml ESV(Teich) 41.7 ml EF(Teich) 60.8 % EDV(cubed) 109.4 ml ESV(cubed) 33.5 ml EF(cubed) 69.3 % % IVS thick 21.9 % % LVPW thick 37.6 % LV mass(C)d 273.8 grams LV mass(C)dI 132.6 grams/m\S\2 LV mass(C)s 244.7 grams LV mass(C)sI 118.5 grams/m\S\2 CO(Teich) 5.7 l/min CI(Teich) 2.8 l/min/m\S\2 SV(Teich) 64.9 ml SI(Teich) 31.4 ml/m\S\2 CO(cubed) 6.7 l/min CI(cubed) 3.2 l/min/m\S\2 SV(cubed) 75.8 ml SI(cubed) 36.7 ml/m\S\2 Ao root diam 3.7 cm Ao root area 10.8 cm\S\2 ACS 1.8 cm LA dimension 3.8 cm asc Aorta Diam 3.2 cm LA/Ao 1.0 LVAd ap4 34.7 cm\S\2 LVLd ap4 9.2 cm EDV(MOD-sp4) 107.0 ml LVAs ap4 19.6 cm\S\2 LVLs ap4 7.6 cm ESV(MOD-sp4) 42.0 ml EF(MOD-sp4) 60.7 % LVAd ap2 31.1 cm\S\2 LVLd ap2 9.0 cm EDV(MOD-sp2) 90.0 ml LVAs ap2 15.0 cm\S\2 LVLs ap2 6.7 cm ESV(MOD-sp2) 28.0 ml EF(MOD-sp2) 68.9 % CO(MOD-sp4) 5.7 l/min CI(MOD-sp4) 2.8 l/min/m\S\2 SV(MOD-sp4) 65.0 ml SI(MOD-sp4) 31.5 ml/m\S\2 CO(MOD-sp2) 5.5 l/min CI(MOD-sp2) 2.6 l/min/m\S\2 SV(MOD-sp2) 62.0 ml SI(MOD-sp2) 30.0 ml/m\S\2 Doppler Measurements and Calculations MV E max claire 94.4 cm/sec MV P1/2t max claire 105.7 cm/sec MV P1/2t 70.7 msec MVA(P1/2t) 3.1 cm\S\2 MV dec slope 437.8 cm/sec\S\2 MV dec time 0.18 sec Ao V2 max 127.9 cm/sec Ao max PG 6.7 mmHg Ao max PG (full) 0.02 mmHg LV V1 max PG 6.7 mmHg LV V1 max 129.0 cm/sec PA V2 max 131.4 cm/sec PA max PG 6.9 mmHg
--- NOTE | 2017-02-08 14:01 | Procedure Note ---
Post-Mod Sedation Assessment General Date of Moderate Sedation Feb 08, 2017. Vital Signs: Vital Signs Past 12 Hours Date Time Temp Pulse Resp B/P Pulse Ox O2 Delivery O2 Flow Rate FiO2 02/08/17 12:00 61 18 97 Room Air 61 02/08/17 12:00 Room Air 02/08/17 11:24 37.1 62 18 103/64 96 Room Air 02/08/17 10:24 37.2 55 16 106/63 96 Room Air 02/08/17 10:01 97 Room Air 02/08/17 09:56 37.2 54 16 113/70 97 Room Air 02/08/17 09:47 37.1 57 20 116/63 97 Room Air 02/08/17 09:40 37.1 57 20 116/63 97 Room Air 02/08/17 09:23 37.0 60 14 119/65 95 Room Air 02/08/17 08:41 64 16 120/80 97 Room Air 02/08/17 08:26 70 16 128/76 97 Room Air 02/08/17 04:00 Room Air 02/08/17 03:35 37.0 80 19 90/44 95 Room Air Review - Discharge Criteria Vital Signs Stable: Yes Alert/Oriented/Conversant: Yes Returned to Baseline Mental St: Yes Nausea Absent/Minimal: Yes Pain/Discomfort/Absent/Minimal: Yes Normal/Baseline Respirations: Yes Active Bleeding?: No Pt Received D/C Instructions: N/A Prescriptions Given: None Specific Proced. D/C Criteria Distal Pulses Present (Cardiac: Yes Groin site assessed-Card Cath: Yes Voided Prior To Discharge: N/A Discharged Patients Adult Escort/Transportation: N/A
--- NOTE | 2017-02-08 14:33 | CARDIOLOGY PROGRESS NOTE ---
DATE: 02/08/2017 SUBJECTIVE: This morning, Mr. Montgomery claims to be feeling well. He has had resolution of his chest and back pain. He denies significant breathing trouble. He is happy to sit upright and has been tolerating regular diet this afternoon. PHYSICAL EXAMINATION: GENERAL: He was alert and oriented. His mood and affect appeared normal. He answered all questions appropriately. CURRENT VITAL SIGNS: Include blood pressure of 103/64 with a pulse of 62. LUNGS: Auscultation of lung apices revealed them to be clear. CARDIAC EXAMINATION: Revealed a regular rhythm without murmurs or rubs. EXTREMITIES: Evaluation of his right groin access site did not reveal any evidence of hematoma. He has good distal perfusion. LABORATORY STUDIES: Obtained this morning include a white cell count of 9.5, hemoglobin of 13.4 and a platelet count of 186. Chemistry included a sodium 141, potassium of 4.2, BUN was 13. Creatinine was 0.9. Cardiac troponin peaked last evening at 54 and is down to 24 this morning. Total CK was 1403. Coronary and graft angiography was performed this morning which revealed occlusion of the distal segment of the SVG to the second OM branch. Echocardiogram was also performed which revealed preserved left ventricular systolic function this morning without evidence of wall motion abnormalities or significant valvular disease. ASSESSMENT AND PLAN: 1. Non-ST elevation myocardial infarction. This is due to occlusion of distal segment of the saphenous vein graft to the second OM. He has had resolution of his symptoms, likely to completion of the infarct. The lesion itself was not amenable to percutaneous intervention due to the clot burden and size of the graft itself. The target vessel was fairly diminutive in size. Based on his echocardiogram, he does not seem to have had any significant adverse effects with respect to cardiac function. At this point, we elected to treat him medically with continued heparinization over the course of the evening. In addition, Brilinta to his medical regimen. 2. Tobacco abuse. The patient was counseled with respect to need to discontinue tobacco. 3. Lipids. The patient will be continued on high dose atorvastatin.
[2017-02-08 14:54] LABS: CALCIUM 8.9 mg/dl (8.5-10.1)
[2017-02-08] MEDS: SODIUM CHLORIDE 0.9% 1000ML 1,000 ML IV SCH ×2 (15:00→20:26)
--- NOTE | 2017-02-08 15:27 | Hospitalist Progress Note ---
Hospitalist Progress Note Date of Service Feb 08, 2017. (Jeri Morales PA-C) Subjective Pt evaluation today including: conversation w/ patient, conversation w/ family , physical exam, chart review, lab review, review of studies, review of inpatient medication list Patient returned from cardiac catheterization. Has no complaints. Denies any chest pain or pressure now or prior to catheterization. No shortness of breath. No dizziness or heart palpitations. No pain in the right groin. Additional Comments: 6 system review negative. Please see pertinent positives in the history of present illness section. (Jeri Morales PA-C) Objective Vital Signs Date Time Temp Pulse Resp B/P Pulse Ox O2 Delivery O2 Flow Rate FiO2 02/08/17 12:00 61 18 97 Room Air 61 02/08/17 12:00 Room Air 02/08/17 11:24 37.1 62 18 103/64 96 Room Air 02/08/17 10:24 37.2 55 16 106/63 96 Room Air 02/08/17 10:01 97 Room Air 02/08/17 09:56 37.2 54 16 113/70 97 Room Air 02/08/17 09:47 37.1 57 20 116/63 97 Room Air 02/08/17 09:40 37.1 57 20 116/63 97 Room Air 02/08/17 09:23 37.0 60 14 119/65 95 Room Air 02/08/17 08:41 64 16 120/80 97 Room Air 02/08/17 08:26 70 16 128/76 97 Room Air 02/08/17 04:00 Room Air 02/08/17 03:35 37.0 80 19 90/44 95 Room Air 02/08/17 00:00 Room Air 02/07/17 23:12 37.1 82 18 89/46 94 Room Air 02/07/17 20:00 Room Air 02/07/17 19:38 37.0 57 19 133/69 95 Room Air 02/07/17 17:00 151/88 02/07/17 16:00 98 Room Air (Jeri Morales PA-C) Physical Exam General Appearance: no apparent distress Eyes: EOMI Neck: no JVD Respiratory/Chest: lungs clear Cardiovascular: regular rate, rhythm, no murmur Abdomen: non tender, soft, + pertinent finding (bowel sounds present, but hypoactive) Extremities: + pertinent finding (trace pitting edema in the left lower extremity without any erythema, tenderness or warmth appreciated. Cath site in the right groin normal in appearance. No hematoma noted. Dressing clean, dry and intact.) Neurologic/Psychiatric: no motor/sensory deficits, oriented x 3 Skin: warm/dry (Jeri Morales PA-C) Laboratory Results 02/08/17 05:45 Red Blood Count 4.39, Mean Corpuscular Volume 89.1, Mean Corpuscular Hemoglobin 30.5, Mean Corpuscular Hemoglobin Concent 34.3, Mean Platelet Volume 10.0, Neutrophils (%) (Auto) 79.1, Lymphocytes (%) (Auto) 12.2, Monocytes (%) (Auto) 7.5, Eosinophils (%) (Auto) 0.8, Basophils (%) (Auto) 0.2, Neutrophils # (Auto) 7.58, Lymphocytes # (Auto) 1.17, Monocytes # (Auto) 0.72, Eosinophils # (Auto) 0.08, Basophils # (Auto) 0.02 02/08/17 05:45 Test 02/07/17 16:32 02/07/17 23:05 02/08/17 05:45 Prothrombin Time 10.7 SECONDS (9.0-12.0) Prothromb Time International Ratio 1.0 (0.9-1.1) Total Creatine Kinase 1403 U/L (39-308) Creatine Kinase MB 132.1 ng/ml (0.5-3.6) Creatine Kinase MB Ratio 9.4 (0-3.0) White Blood Count 9.59 K/uL (4.8-10.8) Red Blood Count 4.39 M/uL (4.7-6.1) Hemoglobin 13.4 g/dL (14.0-18.0) Hematocrit 39.1 % (42-52) Mean Corpuscular Volume 89.1 fL (80-100) Mean Corpuscular Hemoglobin 30.5 pg (25-34) Mean Corpuscular Hemoglobin Concent 34.3 g/dl (32-36) Platelet Count 186 K/uL (130-400) Mean Platelet Volume 10.0 fL (7.4-10.4) Neutrophils (%) (Auto) 79.1 % Lymphocytes (%) (Auto) 12.2 % Monocytes (%) (Auto) 7.5 % Eosinophils (%) (Auto) 0.8 % Basophils (%) (Auto) 0.2 % Neutrophils # (Auto) 7.58 K/uL (1.4-6.5) Lymphocytes # (Auto) 1.17 K/uL (1.2-3.4) Monocytes # (Auto) 0.72 K/uL (0.11-0.59) Eosinophils # (Auto) 0.08 K/uL (0-0.5) Basophils # (Auto) 0.02 K/uL (0-0.2) RDW Standard Deviation 44.7 fL (36.4-46.3) RDW Coefficient of Variation 13.6 % (11.5-14.5) Immature Granulocyte % (Auto) 0.2 % Immature Granulocyte # (Auto) 0.02 K/uL (0.00-0.02) Activated Partial Thromboplast Time 57.2 SECONDS (21.0-31.0) Partial Thromboplastin Ratio 2.2 Anion Gap 7.0 mmol/L (3-11) Est Creatinine Clear Calc Drug Dose 103.2 ml/min Estimated GFR () 111.8 Estimated GFR (Non- 96.5 BUN/Creatinine Ratio 14.2 (10-20) Calcium Level 8.9 mg/dl (8.5-10.1) Troponin I 24.800 ng/ml (0-0.045) Triglycerides Level 56 mg/dl (0-150) Cholesterol Level 72 mg/dl (0-200) HDL Cholesterol 27 mg/dl LDL Cholesterol, Calculated 34 mg/dl VLDL Cholesterol, Calculated 11 mg/dl Cholesterol/HDL Ratio 2.7 Last 24 Hours Test 02/07/17 16:32 02/07/17 23:05 02/08/17 05:45 White Blood Count 10.67 K/uL 9.59 K/uL Red Blood Count 4.76 M/uL 4.39 M/uL Hemoglobin 14.9 g/dL 13.4 g/dL Hematocrit 42.7 % 39.1 % Mean Corpuscular Volume 89.7 fL 89.1 fL Mean Corpuscular Hemoglobin 31.3 pg 30.5 pg Mean Corpuscular Hemoglobin Concent 34.9 g/dl 34.3 g/dl Platelet Count 211 K/uL 186 K/uL Mean Platelet Volume 9.7 fL 10.0 fL Neutrophils (%) (Auto) 70.9 % 79.1 % Lymphocytes (%) (Auto) 21.6 % 12.2 % Monocytes (%) (Auto) 6.0 % 7.5 % Eosinophils (%) (Auto) 0.9 % 0.8 % Basophils (%) (Auto) 0.2 % 0.2 % Neutrophils # (Auto) 7.56 K/uL 7.58 K/uL Lymphocytes # (Auto) 2.31 K/uL 1.17 K/uL Monocytes # (Auto) 0.64 K/uL 0.72 K/uL Eosinophils # (Auto) 0.10 K/uL 0.08 K/uL Basophils # (Auto) 0.02 K/uL 0.02 K/uL RDW Standard Deviation 45.0 fL 44.7 fL RDW Coefficient of Variation 13.6 % 13.6 % Immature Granulocyte % (Auto) 0.4 % 0.2 % Immature Granulocyte # (Auto) 0.04 K/uL 0.02 K/uL Prothrombin Time 10.7 SECONDS Prothromb Time International Ratio 1.0 Activated Partial Thromboplast Time 28.6 SECONDS 72.0 SECONDS 57.2 SECONDS Partial Thromboplastin Ratio 1.1 2.8 2.2 Total Creatine Kinase 1403 U/L Creatine Kinase MB 132.1 ng/ml Creatine Kinase MB Ratio 9.4 Troponin I 54.800 ng/ml 24.800 ng/ml Sodium Level 141 mmol/L Potassium Level 4.2 mmol/L Chloride Level 108 mmol/L Carbon Dioxide Level 26 mmol/L Anion Gap 7.0 mmol/L Blood Urea Nitrogen 13 mg/dl Creatinine 0.90 mg/dl Est Creatinine Clear Calc Drug Dose 103.2 ml/min Estimated GFR () 111.8 Estimated GFR (Non- 96.5 BUN/Creatinine Ratio 14.2 Random Glucose 112 mg/dl Calcium Level 8.9 mg/dl Triglycerides Level 56 mg/dl Cholesterol Level 72 mg/dl HDL Cholesterol 27 mg/dl LDL Cholesterol, Calculated 34 mg/dl VLDL Cholesterol, Calculated 11 mg/dl Cholesterol/HDL Ratio 2.7 (Jeri Morales PA-C) Diagnostic Results echo * There is mild concentric left ventricular hypertrophy. * Left ventricular systolic function is normal. * No regional wall motion abnormalities noted. * Compared to a study from 2011 the wall motion is now normal. There has been development of mild LVH (Jeri Morales PA-C) Assessment and Plan 56 y/o hx CAD s/p CABG x 4 in 2000 presents to the emergency department with chest pain Unstable angina-NSTEMI -Admitted to telemetry -Seen by cardiology on 02/07 -Started on Brilinta and heparin drip -Troponin peaked overnight at 54. -Patient was taken for cardiac catheterization this morning that revealed an occlusion of distal segment of the saphenous vein graft to the second OM -Medical management was recommended. No intervention was performed. -Continue heparin drip and Brilinta tonight -Bedrest s/p cardiac cath protocol CODE STATUS -LEVEL I FULL CODE This chart was completed in part utilizing [employer] Speech Voice Recognition software. Attempts were made to minimize the grammatical errors, random word insertions, pronoun errors and incomplete sentences. Any formal questions or concerns about the content, text or information contained within the body of this dictation should be directly addressed to the provider for clarification. (Jeri Morales PA-C) Attending Attestation: Pt seen/examined, chart reviewed, care plan d/w LATOYA Morales. I agree w/ the kaufman components of her documentation. Pt feeling well today. He is s/p heart cath - no complications; denies groin pain (right femoral). No cp or sob or orthopnea. Spent a good deal of time discussing smoking cessation. VSS no fever gen - nad neck - no JVD heart - RRR, s1, s2, no murmur lungs - CTA b/l abd - soft ext - right femoral puncture site clean; no hematoma A/P: NSTEMI 2nd to occluded vein graft - medical management. heparin drip x 48 hours. asa, brilenta, BB, etc. appreciate cardiology consultation & assistance. smoking cessation counseling given; chantix was recommended after discharge anticipate d/c home tomorrow Nathen RON MD (Drew Ron MD)
[2017-02-08 17:04] LABS: PARTIAL THROMBOPLASTIN RATIO 1.9
[2017-02-08] MEDS: ATORVASTATIN 40 MG TAB PO SCH (20:21)
[2017-02-09 00:01] VITALS: O2SAT 96
--- NOTE | 2017-02-09 02:45 | OPERATIVE REPORT ---
DATE OF OPERATION: 02/08/2017 PROCEDURES PERFORMED: 1. Left heart catheterization. 2. Selective coronary angiography. 3. Selective coronary graft angiography. STAFF DISPLAY FABRICATION SUPERVISOR: Srinivasa Peacock MD INDICATION: Mr. Warren Montgomery is a patient who had previously undergone coronary artery bypass grafting. He presented to [facility] with chest pain and a non-ST elevation myocardial infarction. As such, he was advised to undergo coronary angiography today. PROCEDURE IN DETAIL: The patient was informed of the risks, benefits and alternatives to the intended procedure. He understood such and wished to proceed. He was taken to the cardiac catheterization suite in a fasting state. Conscious sedation was administered per protocol and the patient was monitored electrocardiographically throughout today's procedure. The right femoral area was prepped and draped in the usual sterile fashion. This area was anesthetized using subcutaneous administration of lidocaine solution. The right femoral artery was subsequently accessed using modified Seldinger technique and a 5-Angolan sheath was placed at the site over a guidewire. The sheath was used to facilitate passage of the cardiac catheters for selective coronary angiography and graft angiography. Images were taken in multiple orthogonal views prior to removal of the catheters. Sheath was also removed and hemostasis was achieved at the access site using manual pressure. The patient tolerated the procedure well. There were no immediate complications. EQUIPMENTS USED: 1. A 5-Angolan JL5. 2. A 5-Angolan JL4. 3. A 5-Angolan AZIZA. 4. A 5-Angolan LCD. FINDINGS: HEMODYNAMICS: Opening aortic pressure was 90/53 with a mean of 70. Closing aortic pressure was 106/58 with a mean of 78. CORONARY ARTERIES: 1. LEFT MAIN: Left main coronary artery was quite short but bifurcated into a left circumflex and left anterior descending artery. There was no significant disease in the short left main. 2. LEFT ANTERIOR DESCENDING: Left anterior descending artery was totally occluded after a small second diagonal branch. There was a large septal welfare eligibility interviewer and a very diminutive first diagonal, followed by a second diagonal. These vessels appeared to be free of significant obstructive disease. There was phasic flow noted in the distal left anterior descending. 3. LEFT CIRCUMFLEX: The left circumflex artery was a dominant vessel. There was a medium sized first OM branch, which appeared to be angiographically free of disease. There was also a relatively small and diminutive system in the distal left circumflex. 4. RIGHT CORONARY: The right coronary artery was a nondominant vessel and free of significant obstructive disease. CORONARY GRAFT ANGIOGRAPHY: 1. SHETH: SHETH graft to the LAD was widely patent at its origin, body and anastomosis. It filled distal left anterior descending which was free of distal stenosis. 2. SAPHENOUS VEIN GRAFT TO THE OM: Saphenous vein graft to the first OM was widely patient at its origin, body and anastomosis to the first obtuse marginal branch. First obtuse marginal branch was a large vessel and free of obstructive disease distal to the anastomosis. The second segment of the graft which was anastomosed to OM2 was grossly abnormal and appeared to be filled with thrombus. It was a large vessel and supplied a very small diminutive target vessel. 3. SAPHENOUS VEIN GRAFT TO THE PDA: This vein graft was widely patent at its origin, body and anastomosis to the left-sided PDA. The PDA itself appeared to be free of significant angiographic disease. IMPRESSION: Acute coronary syndrome involving the distal portion of the saphenous vein graft to OM2. PLAN: Due to the nature of the thrombosis and mechanical issues with the valve, no percutaneous intervention will be performed and the patient will be managed medically. I attest to the content of the Intraoperative Record and any orders documented therein. Any exceptions are noted below. NICKYD
[2017-02-09 04:00] VITALS: O2SAT 97
[2017-02-09 05:38] VITALS: BP 118/77; PULSE 81; TEMP 36.8; O2SAT 97
[2017-02-09] MEDS: SODIUM CHLORIDE 0.9% 1000ML 1,000 ML IV SCH (06:40)
[2017-02-09 07:29] LABS: BASO % 0.3 %; BASO ABS # 0.02 K/uL (0-0.2); COMPLETE YES; EOS % 1.5 %; HEMATOCRIT 40.2 % (42-52); IG% 0.1 %; LYMPH % 18.5 %; LYMPH ABS # 1.27 K/uL (1.2-3.4); MEAN CELL VOLUME 90.1 fL (80-100); MEAN CORPUSCULAR HEMOGLOBIN 30.7 pg (25-34); MEAN CORPUSCULAR HGB CONC 34.1 g/dl (32-36); MEAN PLATELET VOLUME 10.1 fL (7.4-10.4); MONO % 8.2 %; NEUT % 71.4 %; PLATELET COUNT 179 K/uL (130-400); RED BLOOD COUNT 4.46 M/uL (4.7-6.1); WHITE BLOOD COUNT 6.85 K/uL (4.8-10.8)
[2017-02-09 07:47] LABS: PARTIAL THROMBOPLASTIN RATIO 2.2
[2017-02-09 08:18] VITALS: BP 122/72; PULSE 80; TEMP 36.9; O2SAT 98
[2017-02-09 08:21] LABS: BUN/CREATININE RATIO 9.8 (10-20); CREATININE 0.84 mg/dl (0.60-1.40)
--- NOTE | 2017-02-09 08:25 | CARDIOLOGY PROGRESS NOTE ---
DATE: 02/09/2017 SUBJECTIVE: This morning Mr. Montgomery claims to be feeling well. He was ambulatory yesterday evening and managed to walk around the rader without recurrent symptoms of chest or back discomfort. He denies significant breathing difficulty. He has no pain at his access site. He denied any sense of dizziness or lightheadedness or palpitation. PHYSICAL EXAMINATION: GENERAL: He was alert and oriented. His mood and affect appeared normal. He answered all questions appropriately. CURRENT VITAL SIGNS: Include blood pressure 118/77 with a pulse of 81. LUNGS: Auscultation of his lungs revealed them to be clear. There were no rales, wheezes or rhonchi. CARDIAC: Revealed him to be in a regular rhythm. I did not appreciate any murmurs. EXTREMITIES: Evaluation of his right groin access site did not reveal any evidence of hematoma or ecchymosis. There was no bruit on auscultation. LABORATORY STUDIES: Obtained today included a white cell count of 6.8, hemoglobin of 13.7, and platelet count of 179. A 12-lead EKG was performed this morning which did not reveal any evidence of injury. It was a normal EKG without change. Review of his telemetry revealed only rare PVCs that were more often artifact than true arrhythmia. No other arrhythmias identified. ASSESSMENT AND PLAN: 1. Non-ST elevation myocardial infarction. The patient had occlusion of the distal limb of saphenous vein graft to OM2. The target vessel itself was quite small. The overall infarct size was of medium caliber based on his CK elevation. He very likely completed this infarct and no longer has symptoms. Echocardiogram performed yesterday suggested preserved left ventricular systolic function without evidence of wall motion abnormality. He has had no arrhythmias, recurrent symptoms, evidence of heart failure or mechanical complication. At this point, we will stop his heparin and monitor him throughout the course of the day and perhaps discharge this evening. He has been started on Brilinta as medical therapy for his recent infarct. Remainder of his medical regimen appears appropriate at this time. 2. Tobacco abuse. The patient was counseled regarding the need to discontinue tobacco in an attempt to avoid additional episodes such as this. 3. Followup upon discharge. The patient to follow up in my clinic in 1 week's time, sooner for recurrent symptoms.
[2017-02-09 08:27] LABS: CALCIUM 8.8 mg/dl (8.5-10.1)
[2017-02-09] MEDS ORDERED: NURSING VERBAL MED ORDER ONE (08:45)
--- NOTE | 2017-02-09 08:53 | Hospitalist Progress Note ---
Hospitalist Progress Note Date of Service Feb 09, 2017. Objective Vital Signs Date Time Temp Pulse Resp B/P Pulse Ox O2 Delivery O2 Flow Rate FiO2 02/09/17 08:18 36.9 80 18 122/72 98 02/09/17 05:38 36.8 81 18 118/77 97 Room Air 02/09/17 04:00 97 Room Air 02/09/17 00:01 96 Room Air 02/08/17 23:31 36.9 76 18 111/57 96 Room Air 02/08/17 20:00 Room Air 02/08/17 18:58 36.6 71 18 122/68 97 Room Air 02/08/17 16:00 Room Air 02/08/17 15:45 36.6 66 18 126/74 96 Room Air 02/08/17 12:00 61 18 97 Room Air 61 02/08/17 12:00 Room Air 02/08/17 11:24 37.1 62 18 103/64 96 Room Air 02/08/17 10:24 37.2 55 16 106/63 96 Room Air 02/08/17 10:01 97 Room Air 02/08/17 09:56 37.2 54 16 113/70 97 Room Air 02/08/17 09:47 37.1 57 20 116/63 97 Room Air 02/08/17 09:40 37.1 57 20 116/63 97 Room Air 02/08/17 09:23 37.0 60 14 119/65 95 Room Air Laboratory Results Last 24 Hours Test 02/08/17 16:36 02/09/17 06:47 Activated Partial Thromboplast Time 49.6 SECONDS 57.0 SECONDS Partial Thromboplastin Ratio 1.9 2.2 White Blood Count 6.85 K/uL Red Blood Count 4.46 M/uL Hemoglobin 13.7 g/dL Hematocrit 40.2 % Mean Corpuscular Volume 90.1 fL Mean Corpuscular Hemoglobin 30.7 pg Mean Corpuscular Hemoglobin Concent 34.1 g/dl Platelet Count 179 K/uL Mean Platelet Volume 10.1 fL Neutrophils (%) (Auto) 71.4 % Lymphocytes (%) (Auto) 18.5 % Monocytes (%) (Auto) 8.2 % Eosinophils (%) (Auto) 1.5 % Basophils (%) (Auto) 0.3 % Neutrophils # (Auto) 4.89 K/uL Lymphocytes # (Auto) 1.27 K/uL Monocytes # (Auto) 0.56 K/uL Eosinophils # (Auto) 0.10 K/uL Basophils # (Auto) 0.02 K/uL RDW Standard Deviation 45.0 fL RDW Coefficient of Variation 13.7 % Immature Granulocyte % (Auto) 0.1 % Immature Granulocyte # (Auto) 0.01 K/uL Sodium Level 142 mmol/L Potassium Level 4.0 mmol/L Chloride Level 109 mmol/L Carbon Dioxide Level 26 mmol/L Anion Gap 7.0 mmol/L Creatinine 0.84 mg/dl Est Creatinine Clear Calc Drug Dose 109.6 ml/min Estimated GFR () 115.0 Estimated GFR (Non- 99.3 BUN/Creatinine Ratio 9.8 Random Glucose 121 mg/dl Calcium Level 8.8 mg/dl Assessment and Plan 56 y/o hx CAD s/p CABG x 4 in 2000 presents to the emergency department with chest pain found to have NSTEMI. Pt underwent cardiac catheterization on 02/08 although there was no PCI performed. Unstable angina-NSTEMI - Cardiology on board- appreciate recs and involvement. Pt now s/p cardiac cath on 02/08 without PCI: Findings included a L anterior descending artery which was occluded and acute coronary syndrome involving the distal portion of the saphenous vein graft. - Cont on Brilinta and heparin drip -Troponin peaked at 54 on 02/08 and has trended down to 24 today - Bedrest s/p cardiac cath protocol - Plan for discharge later today if pt continues to feel well. DVT ppx: heparin gtt, teds, scds CODE STATUS: FULL CODE Disposition: From home, likely discharge later today
[2017-02-09] MEDS: NICOTINE 14 MG/24 HR TDSY TD SCH (09:00)
[2017-02-09] MEDS: TICAGRELOR 90 MG TAB PO SCH (09:25)
[2017-02-09] MEDS: METOPROLOL SUCC 25MG EXT REL TAB PO SCH (09:25)
[2017-02-09] MEDS: ASPIRIN 325 MG ECTAB PO SCH (09:26)
[2017-02-09] MEDS: MULTIVITAMIN TAB PO SCH (09:26)
[2017-02-09] MEDS: LISINOPRIL 20 MG TAB PO SCH (09:26)
[2017-02-09] MEDS ORDERED: ASPI1CHW12 PO (09:54)
[2017-02-09] MEDS ORDERED: OMEP20TA PO (09:54)
[2017-02-09] MEDS ORDERED: BRL90 PO (09:54)
--- NOTE | 2017-02-09 10:01 | Discharge Instructions ---
Discharge Instructions Date of Service Feb 09, 2017. Admission Reason for Admission: Chest Pain Radiating To Arm, Precordial Chest Pain Discharge Discharge Diagnosis / Problem: NSTEMI Discharge Goals Goal(s): Decrease discomfort, Improve function, Increase independence, Improve disease control Activity Recommendations Activity Limitations: resume your previous activity Lifting Limitations: no more than 25 pounds, gradually increase as tolerated Exercise/Sports Limitations: rest today, gradually increase as tolerated May Resume Sexual Activity: after follow-up appointment Shower/Bathe: no limitations Driving or Machine Use: no limitations Post Heart Catheterization Instructions - * Do not strain during bowel movements for the first 3 to 4 days after the procedure to prevent bleeding from the right groin catheter insertion site. * Avoid heavy lifting (more than 10 pounds) and pushing or pulling heavy objects for the first 5 to 7 days after the procedure. * Do not participate in strenuous activities. This includes most sports - jogging, golfing, playing tennis, bowling, going to the gym, etc. * You may climb stairs if needed, but walk up and down the stairs more slowly than usual. * You may remove the dressing over the groin on Monday morning. * You may shower at this time, but do not get the dressing wet. Keep the dressing as dry as possible during the shower. Do not immerse/take a tub bath at this time. Instructions / Follow-Up Instructions / Follow-Up You were admitted to [facility] with chest pain and diagnosed with NSTEMI (non-ST elevation myocardial infarction) ie. Heart attack. During your stay here you were treated with medications including antiplatelet therapy. Imaging studies which were completed include cardiac catheterization on 02/08/17 Medications: You have been started on a medication called Brillinta, continue taking this medication as prescribed. Continue taking baby aspirin 81 mg daily along with Brillinta You have been started on omeprazole 20 mg daily to protect your stomach while on dual antiplatelet therapy (Brillinta and aspirin) If you decide to take the chantix for smoking cessation please note that nausea is a big side effect and sometimes mood changes. If you notice mood changes notify your family doctor right away. Follow up with your Primary Care Provider within 1 week. Follow up with Dr. Peacock, cardiology within 1-2 weeks. Activation of Emergency Medical System: Call 911, immediately, if you experience any of the following: Warning Signs and Symptoms of a Heart Attack: * Chest pain that is not relieved by medication * Shortness of breath Otherwise, call your doctor immediately if you have: * Lightheadedness, dizziness, or fainting * Feeling of irregular heartbeat or fast pulse Home Care: * Take your medications exactly as directed. Don't skip doses. * Remember that recovery after a heart attack takes time. Plan to rest for at lease 4-8 weeks while you recover. Then return to normal activity when your doctor says it's okay. * Ask your doctor about joining a heart rehabilitation program. * Tell your doctor if you are feeling depressed. Feelings of sadness are common after a heart attack, but it is important that you speak to someone if you are feeling overwhelmed by these feelings. * If you are having chest pain, call 911 for an ambulance. Do NOT drive yourself to the hospital. * Ask your family members to learn CPR. * Learn to take your own blood pressure and pulse. Keep a record of your results. Ask your doctor when you should seek emergency medical attention. He or she will tell you which blood pressure reading is dangerous. Lifestyle Changes: * Maintain a healthy weight. Get help to lose any extra pounds. * Cut back on salt. 1. Limit canned, dried, packaged, and fast foods. 2. Don't add salt to your food. 3. Season foods with herbs instead of salt when you cook. * Break the smoking habit. Enroll in a stop-smoking program to improve your chances of success. * Limit fatty foods. * Check your lipid levels regularly. (Your doctor can show you how to do this. ) * Build up your activity according to your doctor's recommendation. * Ask your doctor when it's okay to resume sexual activity. * Tell your doctor about any erectile dysfunction (ED) medication you are taking. Some ED medications are not safe if you take certain heart medications. * Try to manage stress. Follow Up: It is important for you to keep your follow up appointments with your medical provider. Current Hospital Diet Patient's current hospital diet: AHA Diet (Heart Healthy) Discharge Diet Recommended Diet: AHA Diet (Heart Healthy) Procedures Procedures Performed: echo Cardiac cath Pending Studies Studies pending at discharge: no Laboratory Results Hemoglobin A1c Test 02/07/17 05:52 Range/Units Estimated Average Glucose 126 mg/dl Hemoglobin A1c 6.0 H 4.5-5.6 % Lipid Panel Test 02/08/17 05:45 Range/Units Triglycerides Level 56 0-150 mg/dl Cholesterol Level 72 0-200 mg/dl HDL Cholesterol 27 mg/dl Cholesterol/HDL Ratio 2.7 LDL Cholesterol, Calculated 34 mg/dl Medical Emergencies . Who to Call and When: Medical Emergencies: If at any time you feel your situation is an emergency, please call 911 immediately. . Non-Emergent Contact Non-Emergency issues call your: Primary Care Provider Call Non-Emergent contact if: temperature is above 100.5, your pain is not controlled, your pain is worsening, your pain is unusual for you, your pain is concerning you, you have any medication questions . Past History Medical & Surgical History: (1) NSTEMI (non-ST elevated myocardial infarction) (2) Chest pain radiating to arm (3) Hypertension . "Provider Documentation" section prepared by Catherine Hahn. VTE Core Measure Inpt VTE Proph given/why not?: Other Anticoagulation, SCD's
[2017-02-09] MEDS ORDERED: NTRGSL4 SL (10:37)
[2017-02-09] MEDS ORDERED: VARE1PAK15 PO (10:37)
--- NOTE | 2017-02-09 10:37 | Discharge Summary ---
Discharge Summary Date of Service Feb 09, 2017. (Cristina Hahn PA-C) Discharge Summary Admission Date: Feb 07, 2017 at 17:56 Discharge Date: Feb 07, 2017 Discharge Disposition: Home Principal Diagnosis: NSTEMI Problems/Secondary Diagnoses: CAD, HTN, tobacco use Immunizations: Have You Had Influenza Vaccine: Unknown History of Tetanus Vaccine?: Unknown History of Pneumococcal: Unknown History of Hepatitis B Vaccine: Unknown Procedures: CXR 02/07/17 IMPRESSION: Cardiomegaly with no acute cardiopulmonary abnormality. Echocardiogram 02/08/17 * -- Conclusions -- * There is mild concentric left ventricular hypertrophy. * Left ventricular systolic function is normal. * No regional wall motion abnormalities noted. * Compared to a study from 2010 the wall motion is now normal. There has been development of mild LVH Cardiac Cath 02/08/17 FINDINGS: HEMODYNAMICS: Opening aortic pressure was 90/53 with a mean of 70. Closing aortic pressure was 106/58 with a mean of 78. CORONARY ARTERIES: 1. LEFT MAIN: Left main coronary artery was quite short but bifurcated into a left circumflex and left anterior descending artery. There was no significant disease in the short left main. 2. LEFT ANTERIOR DESCENDING: Left anterior descending artery was totally occluded after a small second diagonal branch. There was a large septal fence supervisor and a very diminutive first diagonal, followed by a second diagonal. These vessels appeared to be free of significant obstructive disease. There was phasic flow noted in the distal left anterior descending. 3. LEFT CIRCUMFLEX: The left circumflex artery was a dominant vessel. There was a medium sized first OM branch, which appeared to be angiographically free of disease. There was also a relatively small and diminutive system in the distal left circumflex. 4. RIGHT CORONARY: The right coronary artery was a nondominant vessel and free of significant obstructive disease. CORONARY GRAFT ANGIOGRAPHY: 1. SHETH: SHETH graft to the LAD was widely patent at its origin, body and anastomosis. It filled distal left anterior descending which was free of distal stenosis. 2. SAPHENOUS VEIN GRAFT TO THE OM: Saphenous vein graft to the first OM was widely patient at its origin, body and anastomosis to the first obtuse marginal branch. First obtuse marginal branch was a large vessel and free of obstructive disease distal to the anastomosis. The second segment of the graft which was anastomosed to OM2 was grossly abnormal and appeared to be filled with thrombus. It was a large vessel and ____ very small diminutive target vessel. 3. SAPHENOUS VEIN GRAFT TO THE PDA: This vein graft was widely patent at its origin, body and anastomosis to the left-sided PDA. The PDA itself appeared to be free of significant angiographic disease. IMPRESSION: Acute coronary syndrome involving the distal portion of the saphenous vein graft to OM2. Consultations: Cardiology (Cristina Hahn PA-C) Medication Reconciliation New Medications: Aspirin (Aspirin 81 Low Dose) 81 Mg Chw 1 TAB PO DAILY, #30 TAB Nitroglycerin (Nitrostat) 0.4 Mg/1 Tab Subl 0.4 MG SL [id number] PRN for chest pain, #1 BTL 0 Refills max 3 tablets in 15 minutes Omeprazole (Omeprazole) 20 Mg Tab 1 TAB PO DAILY for 30 Days, #30 TAB 0 Refills Varenicline Tartrate (Chantix Starting Month Pa) 1 Yahir Yahir 1 TAB PO DIRECTED for 28 Days, #1 PKT 0 Refills Lisinopril (Lisinopril) 20 Mg Tab 20 MG PO QAM for 30 Days, #30 TAB Ticagrelor (Brilinta) 90 Mg Tab 90 MG PO BID for 30 Days, #60 TAB Continued Medications: Atorvastatin (Lipitor) 80 Mg Tab 80 MG PO HS, TAB Metoprolol Succ (Toprol Xl) (Toprol-Xl) 25 Mg Tabcr 25 MG PO BID, TAB Multivitamin (Multivitamin) Tab 1 TAB PO QAM, 0 Refills Discontinued Medications: Aspirin (Aspirin Ec) 325 Mg Tab 325 MG PO DAILY Lisinopril (Zestril) 10 Mg Tab 10 MG PO QAM, TAB Referrals At Discharge Follow up Referrals: Senior [employer] Developer Referral - Within 2 Weeks with Srinivasa Peacock MD Physician Referral - Within 1 Week with RV. Lee MD Discharge Exam The patient was seen and examined this morning. Pt reports doing very well this morning, he was up walking in the halls when I went to see him. He denies any chest pain, flutter, palpitations, shortness of breath or other cardiac complaints. He is requesting to go home today. Pt was seen by Dr. Peacock who thought he could go this afternoon. Review of Systems: Constitutional: No chills, No fever, No sweats Eyes: No diplopia, No problem reported ENT: No sore throat, No trouble swallowing Respiratory: No cough, No dyspnea on exertion, No shortness of breath Cardiovascular: No chest pain, No palpitations Abdomen: No constipation, No diarrhea, No nausea, No pain, No vomiting Musculoskeletal: No calf pain, No joint pain, No swelling Genitourinary - Male: No dysuria, No hematuria Neurologic: No balance problems, No numbness/tingling Endocrine: No fatigue Integumentary: No itch, No rash Physical Exam: General Appearance: WD/WN, no apparent distress, + pertinent finding ( overweight) Eyes: PERRL, EOMI ENT: hearing grossly normal, pharynx normal Neck: supple, thyroid normal Respiratory/Chest: chest non-tender, normal breath sounds, no respiratory distress, no accessory muscle use, + pertinent finding Cardiovascular: regular rate, rhythm, no murmur, normal peripheral pulses Abdomen / GI: normal bowel sounds, non tender, soft Extremities: normal inspection, no calf tenderness, no pedal edema Neurologic/Psychiatric: no motor/sensory deficits, alert, oriented x 3 Skin: normal color, warm/dry (Cristina Hahn, KIMBERLY) Hospital Course H&P per Stevan Napier MD. History of Present Illness Source: patient, spouse The patient is a 56-year-old male with past history of CABG in 2010 at [facility], who woke up this morning as usual, began to drink his coffee, and since then has had intermittent episodes of chest pressure and pain across his precordial area and over into his right arm. He reports the discomfort similar to what happened to him in 2011 was let us CABG. He has been more physically active over the past few day, but nothing that he thinks is excessive. Physical Exam Vital Signs Date Time Temp Pulse Resp B/P Pulse Ox O2 Delivery O2 Flow Rate FiO2 02/07/17 06:57 50 16 145/84 98 Room Air 02/07/17 06:17 59 20 130/65 96 Room Air 02/07/17 05:58 97 Room Air 02/07/17 05:53 57 02/07/17 05:50 36.5 56 20 176/103 100 Room Air The patient is awake, well-developed and adequately nourished, alert and oriented 3, normocephalic and atraumatic, lying in bed and in no acute distress. HEENT--PERRL, EOMI, mucous membranes and oropharynx normal. Neck--supple, no JVD or bruits, thyroid normal, trachea midline, no adenopathy. Heart--normal S1 and S2, no extra beats, no murmurs, rubs or gallops. Lungs--clear bilaterally with good air movement, no respiratory distress, no accessory muscle use. Abdomen--normal bowel sounds and soft, nontender and nondistended, no hernias or masses, no organomegaly. Extremities--no cyanosis, clubbing or edema. There are good distal pulses b/l. Dermatologic--normal skin turgor, normal color, warm and dry, no abnormal lymph nodes, no rash. Neurologic--cranial nerves II through XII grossly intact, motor and sensory examination normal. Rheumatologic--normal range of motion, nontender, muscles and joints. Psychiatric--normal affect. Hospital Course: 56 y/o hx CAD s/p CABG x 4 in 2000 presented to the emergency department with chest pain found to have NSTEMI. Pt underwent cardiac catheterization on 02/08 although there was no PCI performed. Unstable angina-NSTEMI - Cardiology on board- appreciate recs and involvement. Pt now s/p cardiac cath on 02/08 without PCI: Findings included a L anterior descending artery which was occluded and acute coronary syndrome involving the distal portion of the saphenous vein graft. - Cont on dual platelet therapy with Brillinta and aspirin 81 mg - Will start the patient on protonix for GI prophylaxis while on dual platelet therapy - Troponin peaked at 54 on 02/08 and has trended down to 24 today - Pt has been ambulating without difficulty, has no cardiac complaints. Chronic Tobacco Use - Pt was counselled on cessation. Lipids - Pt is to continue on atorvastatin. - Encouraged diet and exercise to improve cardiac health. DVT ppx: heparin gtt, teds, scds CODE STATUS: FULL CODE Disposition: From home, discharge today. Total Time Spent: Greater than 30 minutes This includes examination of the patient, discharge planning, medication reconciliation, and communication with other providers. (Cristina Hahn, KIMBERLY) Attending Discharge Note & Attestation: Pt seen/examined, chart reviewed, and care plan d/w PA Catherine Hahn. I agree w/ the kaufman components of her discharge summary. Pleasant 56yo male with known CAD, HTN, hyperlipidemia, and ongoing tobacco dependence who presented with unstable angina and ultimately NSTEMI. He was treated in the customary fashion with beta kathleen, aspirin, heparin infusion, KINSEY, statin. He required use of nitroglycerin drip due to persistent chest pain. Brilinta was also added. He underwent cardiac cath by Dr. Piyush Peacock demonstrating an occluded vein graft from his previous CABG. Unfortunately this was not amenable to stenting and thus he will receive aggressive medical management. He was counseled numerous times on the importance of smoking cessation and for that reason he will consider chantix. Discharge exam - gen - nad neck - no JVD heart - RRR, s1, s2, no murmur lungs - CTA b/l abd - soft ext - no edema skin - right groin - no hematoma or significant ecchymoses He will restrict his activity level until time of follow-up with Dr. Peacock in the cardiology clinic. Drew Carver MD (Drew Carver MD) Discharge Instructions Please refer to the electronic Patient Visit Report (Discharge Instructions) for additional information. (Cristina Hahn PA-C) Follow-Up Follow up with your Primary Care Provider within 1 week. Follow up with Cardiology within 1 week (Cristina Hahn PA-C) Additional Copies To RV. Lee MD; Srinivasa Peacock MD
[2017-02-09 11:40] VITALS: BP 124/74; PULSE 64; TEMP 36.8; O2SAT 100
[2017-02-09 12:37] VITALS: BP 124/74; PULSE 64; TEMP 36.8; O2SAT 100
== END 2017-02-09 14:30 | disposition home or self-care (01) | DRG 282 ==
LOC: ENRESERVDT → ENRESERVTM → C.EDB 05:44 → C.2E 06:55 → OBSVTOIN 17:56
PROVIDERS: ADMIT Hospitalist; ATTEND Internal Medicine
PROC: B2111ZZ Fluoroscopy of Multiple Coronary Arteries using Low Osmolar Contrast (ICD-10-PCS; principal; 2017-02-08 07:35)
PROC: 4A023N7 Measurement of Cardiac Sampling and Pressure, Left Heart, Percutaneous Approach (ICD-10-PCS; principal; 2017-02-08 07:35)
PROC: B2151ZZ Fluoroscopy of Left Heart using Low Osmolar Contrast (ICD-10-PCS; principal; 2017-02-08 07:35)
DX: I21.4 Non-ST elevation (NSTEMI) myocardial infarction (principal); I25.110 Atherosclerotic heart disease of native coronary artery with unstable angina pectoris; E78.00 Pure hypercholesterolemia, unspecified; I10 Essential (primary) hypertension; F17.200 Nicotine dependence, unspecified, uncomplicated; G47.33 Obstructive sleep apnea (adult) (pediatric)